=== PATIENT | female | born 1990 | race Caucasian/White ===

== ENCOUNTER 2017-01-29 08:37 | Outpatient (CLI) | payer BC ==
[2014-11-21 00:41] VITALS: BP 121/78
== END 2017-01-29 08:40 ==
LOC: OUT 08:37
PROVIDERS: ATTEND General Practice
DX: E28.2 Polycystic ovarian syndrome (principal); L03.90 Cellulitis, unspecified; L68.0 Hirsutism
CPT/HCPCS: 99213

== ENCOUNTER 2017-04-23 08:28 | Outpatient (CLI) | payer BC ==
[2014-11-21 00:41] VITALS: BP 121/78
== END 2017-04-23 08:30 ==
LOC: OUT 08:28
PROVIDERS: ATTEND General Practice
DX: E28.2 Polycystic ovarian syndrome (principal); N94.4 Primary dysmenorrhea
CPT/HCPCS: 99203

== ENCOUNTER 2017-06-16 19:10 | Emergency (ER) | payer SELFPAY ==
--- NOTE | 2017-06-16 19:11 | ED Physician Documentation ---
General Adult - HISTORIAN Historian: patient - HPI Stated Complaint: UTI Chief Complaint: Male Genitourinary Problems Onset: days ago (7) Timing: still present Severity: moderate Further Comments: yes (she states she has had nausea, frequency of urine and "faint + two days ago" She is not taking control pills. She has no fever. Denies any blood in urine. Denies back pain) Last known Well Code/Unknown Code: Unknown - ROS CONST: denies: fever, sweating EYES/ENT: none CVS/RESP: denies: shortness of breath, cough GI/: vomiting, nausea. denies: abdominal pain MS/SKIN/LYMPH: denies: rash NEURO/PSYCH: denies: headache, dizziness - PAST HX Past History: none Other History: none Surgeries/Procedures: none Immunizations: referred to PCP Allergies/Adverse Reactions: Allergies Allergy/AdvReac Type Severity Reaction Status Date / Time No Known Allergies Allergy Verified 06/16/17 19:20 Home Medications: Ambulatory Orders Medication Instructions Recorded Cephalexin [Keflex] 500 mg PO BID #20 capsule 06/16/17 Ondansetron HCl Rapdis [Zofran Odt] 4 mg PO Q8 #20 tab 06/16/17 - SOCIAL HX Smoking History: cigarettes Alcohol Use: none Drug Use: none - FAMILY HX Family History: No - VITAL SIGNS Vital Signs: Vital Signs Temp Pulse Resp BP Pulse Ox 121/78 11/21/14 01:27 - REVIEWED ASSESSMENTS Nursing Assessment Reviewed: Yes Vitals Reviewed: Yes General Adult Physical Exam - PHYSICAL EXAM GENERAL APPEARANCE: no distress EENT: eye inspection normal NECK: normal inspection RESPIRATORY: no resp distress, chest non-tender, breath sounds normal CVS: reg rate & rhythm, heart sounds normal, equal pulses ABDOMEN: soft, no organomegaly, normal bowel sounds, other (NO CVA tenderness no bladder tenderness ) BACK: normal inspection SKIN: warm/dry, normal color EXTREMITIES: non-tender NEURO: oriented X3, CN's nml as tested, motor nml Discharge Clincal Impression: UTI (urinary tract infection) Qualifiers: Urinary tract infection type: site unspecified Hematuria presence: without hematuria Qualified Code(s): N39.0 - Urinary tract infection, site not specified Prescriptions: Cephalexin [Keflex] 500 mg PO BID #20 capsule Ondansetron HCl Rapdis [Zofran Odt] 4 mg PO Q8 #20 tab Referrals: Primary Doctor,No [Primary Care Provider] - 2 Days Condition: Stable Disposition: 01 HOME, SELF-CARE Decision to Admit: NO Date of Decison to Admit: 06/16/17 Decision Time: 19:40
[2017-06-16] MEDS ORDERED: CEPHALEXIN 250 MG CAPSULE PO ONE (19:36)
[2017-06-16] MEDS ORDERED: ONDANSETRON HCL/PF 4 MG/ 2ML VIAL IM ONE (19:36)
[2017-06-16] MEDS ORDERED: ONDANSETRON HCL 4 MG TAB.RAPDIS ONE (19:43)
[2017-06-16] MEDS ORDERED: ONDANSETRON HCL 4 MG TAB.RAPDIS PO ONE (19:43)
[2017-06-16 20:09] VITALS: BP 126/82
[2017-06-17 07:22] LABS: APPEARANCE,URINE CLOUDY (CLEAR); COLOR,URINE YELLOW (YELLOW); OCCULT BLOOD,URINE NEGATIVE (NEGATIVE); PH URINE 5.5 (5.0 - 8.0); URINE HCG NEGATIVE (NEGATIVE); UROBILINOGEN URINE 0.2 Eu (0.2-1.0)
== END 2017-06-16 19:45 | disposition home or self-care (01) ==
LOC: ED 19:10
DX: N39.0 Urinary tract infection, site not specified (principal)
CPT/HCPCS: 81002; 81025; 87086; A9270; 99283

== ENCOUNTER 2017-09-02 10:47 | Outpatient (CLI) | payer SELFPAY | END 2017-09-02 10:50 | LOC: LABRHC 10:47 | PROVIDERS: ATTEND Physician Assistant | DX: R30.0 Dysuria (principal) | CPT/HCPCS: 87086 ==

== ENCOUNTER 2017-09-14 23:27 | Emergency (ER) | payer SELFPAY ==
--- NOTE | 2017-09-14 23:56 | ED Physician Documentation ---
General Adult - HISTORIAN Historian: patient - HPI Stated Complaint: soa, chest pain with inspiration, reproduceable Chief Complaint: General Adult Additional Information: one week history of dizziness and has progressed to shortness of breath, has a mild productive cough of clear phlegm. Has had some mild chest pain, sometimes on left or right. No precipitating factor, nothing seems to help or make it worse. No fever or chills noted. Patient complains of some nausea, vomiting and diarrhea. No blood noted. Timing: still present Severity: mild Modifying Factors: none Further Comments: no - ROS CONST: fever (not sure how high), chills EYES/ENT: none CVS/RESP: shortness of breath, cough GI/: vomiting, nausea, diarrhea MS/SKIN/LYMPH: other (myalgia) NEURO/PSYCH: headache - PAST HX Past History: other (cervical dyplasia) Other History: none Surgeries/Procedures: none Immunizations: referred to PCP Allergies/Adverse Reactions: Allergies Allergy/AdvReac Type Severity Reaction Status Date / Time No Known Allergies Allergy Verified 06/16/17 19:20 Home Medications: Ambulatory Orders Medication Instructions Recorded NK [NK] 09/14/17 - SOCIAL HX Smoking History: less than 1 pack/day Alcohol Use: occasionally Drug Use: none - FAMILY HX Family History: No - VITAL SIGNS Vital Signs: Vital Signs Temp Pulse Resp BP Pulse Ox 126/82 06/16/17 19:45 - REVIEWED ASSESSMENTS Nursing Assessment Reviewed: Yes Vitals Reviewed: Yes ED Results Lab/Radiology - Radiology Radiology Impressions: Pa and lateral chest Clinical history :short of breath Technique pa and lateral upright Findings: The lung merchant are clear. The lung merchant are hyperinflated I see no hilar or mediastinal mass. There is no pleural effusion or lesion of the bony thorax. Impression: Hyperinflation No acute pulmonary disease General Adult Physical Exam - PHYSICAL EXAM GENERAL APPEARANCE: mild distress EENT: ENT inspection normal, pharynx normal NECK: normal inspection, thyroid normal, supple RESPIRATORY: no resp distress, chest non-tender, breath sounds normal. No: wheezes, rales, rhonchi CVS: reg rate & rhythm, heart sounds normal, equal pulses, no murmur, no gallop ABDOMEN: soft, no organomegaly, normal bowel sounds, no abdominal bruit, no distension SKIN: warm/dry, normal color EXTREMITIES: non-tender, normal range of motion NEURO: oriented X3, mood/affect nml Discharge Clincal Impression: Dizziness, Viral illness Referrals: Primary Doctor,No [Primary Care Provider] - 2 Days Additional Instructions: Drink clear liquids for the next 12-24 hours. Try to stay well hydrated. Take Meclizine 25mg ever 6 hours as needed for dizziness. If you continue to have problems to follow-up with your primary care provider. Condition: Stable Disposition: 01 HOME, SELF-CARE Decision to Admit: NO Date of Decison to Admit: 09/15/17 Decision Time: 01:11
[2017-09-15 00:57] LABS: eGFR (African) > 60; eGFR (Non-African) > 60
[2017-09-15] MEDS: MECLIZINE HCL 25 MG TABLET PO ONE (01:13)
[2017-09-15 01:43] VITALS: BP 123/82
--- NOTE | 2017-09-15 07:52 | Diagnostic Imaging Report ---
SHEILA MATTHEWS [facility] [address] [facility] [address] [address] Report Submission Date: Sep 15, 2017 12:36:35 AM CRIMINAL ATTORNEY Patient Study Name: MAGDALENO CHASE Date: Sep 15, 2017 12:17:14 AM CRIMINAL ATTORNEY Modality Type: DX Gender: F Description: CHEST : 89 Institution: [facility] Physician: SHEILA MATTHEWS Pa and lateral chest Clinical history :short of breath Technique pa and lateral upright Findings: The lung merchant are clear. The lung merchant are hyperinflated I see no hilar or mediastinal mass. There is no pleural effusion or lesion of the bony thorax. Impression: Hyperinflation No acute pulmonary disease Electronically signed on Sep 15, 2017 12:36:35 AM CRIMINAL ATTORNEY by: Demetrius ROMO
[2017-09-15 18:41] LABS: BASO % 0.6 % (0.0-1.5); EOS % 3.7 % (0.0-6.8); LYMPH ABS # 4.12 thou/uL (0.60-4.00); MCH. 25.9 pg (28.0-34.0); MCV 80.6 fL (80.0-100.0); MONOCYTE ABS # 0.47 thou/uL (0.00-0.90); PLATELET COUNT 598 thou/uL (130-400)
== END 2017-09-15 01:18 | disposition home or self-care (01) ==
LOC: ED 23:27
DX: B34.9 Viral infection, unspecified (principal); R42 Dizziness and giddiness
CPT/HCPCS: 71046; 80053; 85025; 99283; S1016

== ENCOUNTER 2017-11-12 17:41 | Emergency (ER) | payer SELFPAY ==
--- NOTE | 2017-11-12 18:25 | ED Physician Documentation ---
General Adult - VITAL SIGNS Vital Signs: Vital Signs Temp Pulse Resp BP Pulse Ox 96.8 F L 63 17 127/72 99 11/12/17 17:50 11/12/17 17:50 11/12/17 17:50 11/12/17 17:50 11/12/17 17:50 <VivianeKaden cruz Nina - Last Filed: 11/12/17 20:59> - HISTORIAN Historian: patient - HPI Stated Complaint: R flank pain Chief Complaint: Abdominal Pain Additional Information: 3 day pain in the RLQ/pelvic area. The pain is radiating into the right flank area. Patient describes the pain as being intermittent when it first started but seemed to be constant at this time. No precipitating factor. Nothing seems to modify the pain. No vaginal discharge. Patient denies any fever or chills. Patient denies any previous history of kidney stones. Patient has not had any similar pain previously.Patient denies any history of an ovarian cyst. Onset: days ago (3 days) Timing: still present Severity: moderate - ROS CONST: no problems. denies: fever, chills - PAST HX Past History: other (anxiety) Other History: none Surgeries/Procedures: none Immunizations: referred to PCP - SOCIAL HX Smoking History: less than 1 pack/day (1/2 ppd) Alcohol Use: occasionally Drug Use: none - FAMILY HX Family History: Yes - VITAL SIGNS Vital Signs: Vital Signs Temp Pulse Resp BP Pulse Ox 96.8 F L 63 17 127/72 99 11/12/17 17:50 11/12/17 17:50 11/12/17 17:50 11/12/17 17:50 11/12/17 17:50 - REVIEWED ASSESSMENTS Nursing Assessment Reviewed: Yes Vitals Reviewed: Yes <Gordon Simms - Last Filed: 11/19/17 15:04> - PAST HX Allergies/Adverse Reactions: Allergies Allergy/AdvReac Type Severity Reaction Status Date / Time No Known Allergies Allergy Verified 11/12/17 18:08 Home Medications: Ambulatory Orders Medication Instructions Recorded Buspirone HCl [Buspar] 10 mg PO BID 11/12/17 Progress - Progress Progress: CT abdomen/pelvis w/o contrast: The lung bases are clear partial right lower lobe granuloma. Evaluation is limited without IV contrast. Abdomen: The liver, pancreas and spleen are normal in appearance. The gallbladder is unremarkable. The kidneys are normal in size and surface contour. There is no evidence of renal or ureteral calculi identified. No hydronephrosis or perinephric stranding is evident. The aorta is normal in caliber. The small bowel is nondistended. There is no evidence of free air or free fluid. Pelvis: The colon is normal in appearance. The distal ureters and bladder are normal in appearance. There is no evidence of distal ureteral or intravesicular calculi. . There is no evidence of free air or free fluid. The sigmoid colon and rectum are normal. The appendix is at upper limits of normal in size measuring 6 mm. There is no periappendiceal fat stranding. Cannot evaluate for abnormal enhancement as IV contrast was not given. IMPRESSION: No evidence of renal or ureteral calculi. Upper limits of normal appendix size without other noncontrast evidence of acute appendicitis. Clinical correlation recommended as early appendicitis not excluded given the clinical history. Electronically signed on November 12, 2017 7:55:13 PM CDT by: Ronak Dover Toradol 30 mg IV temporary relief NS 1 L IVF Zofran 4 mg IV Dilaudid 1 mg IV pain improved Cannot rule out appendicitis, though pt does not have elevated wbc, n/v, or complete loss of appetite, though pt does not feel like eating. Pt wishes to go home. She will return to ER if pain increases or if she develops n/v, fever , or has new concerns. Return to ER if pain recurs or if you develop new symptoms such as nausea/ vomiting, fever or if you have concerns. <Kaden Alejandra - Last Filed: 11/12/17 20:59> ED Results Lab/Radiology - Lab Results Lab Results: Lab Results 11/12/17 11/12/17 18:00 18:00 WBC 9.60 K/ul K/ul (4.00-12.00) RBC 4.93 M/ul M/ul (3.90-5.20) Hgb 12.7 g/dL g/dL (12.0-16.0) Hct 40.2 % % (34.5-46.5) MCV 81.4 fl fl (80.0-100.0) MCH 25.7 pg L pg (28.0-34.0) MCHC 31.6 g/dL g/dL (30.0-36.0) RDW 13.6 % % (11.3-14.3) Plt Count 570 K/mm3 H K/mm3 (130-400) Neut % (Auto) 59.7 % % (39.0-79.0) Lymph % (Auto) 31.8 % % (16.0-50.0) [place] % (Auto) 3.4 % % (0.0-11.0) Eos % (Auto) 3.7 % % (0.0-6.8) Baso % (Auto) 0.4 (0.0-1.5) Neut # (Auto) 5.7 # k/uL # k/uL (1.4-7.7) Lymph # (Auto) 3.0 # k/uL # k/uL (0.6-4.0) [place] # (Auto) 0.3 # k/uL # k/uL (0.0-0.9) Eos # (Auto) 0.4 # k/uL # k/uL (0.0-0.6) Baso # (Auto) 0.0 # k/uL # k/uL (0.0-0.5) Reactive Lymphs % 1.1 % % (0.0-5.0) Reactive Lymphs # 0.1 # k/uL # k/uL (0.0-0.8) Sodium 140 mmol/L mmol/L (136-145) Potassium 4.3 mmol/L mmol/L (3.5-5.1) Chloride 103 mmol/L mmol/L (98-107) Carbon Dioxide 21 mmol/L L mmol/L (22-30) BUN 13 mg/dL mg/dL (7-17) Creatinine 0.70 mg/dL mg/dL (0.52-1.04) Estimated Creat Clear 267 Est GFR ( Amer) > 60 (60 - ) Est GFR (Non-Af Amer) > 60 (60 - ) Glucose 84 mg/dL mg/dL (74-106) Calcium 10.2 mg/dL mg/dL (8.4-10.2) Total Bilirubin 0.9 mg/dL mg/dL (0.2-1.3) AST 25 U/L U/L (15-46) ALT 33 U/L U/L (13-69) Alkaline Phosphatase 36 U/L L U/L (38-126) Total Protein 8.9 g/dL H g/dL (6.3-8.2) Albumin 4.8 g/dL g/dL (3.5-5.0) - Orders Orders: ED Orders Category Date Time Status Place IV Lock 1T Care 11/12/17 18:[address] ABD & PELVIS W/O CON Stat Exams 11/12/17 Taken CBC/PLATELET/DIFF Routine Lab 11/12/17 18:00 Completed CMP Routine Lab 11/12/17 18:00 Completed URINALYSIS Routine Lab 11/12/17 Ordered URINE HCG Routine Lab 11/12/17 Uncollected 0.9 % Sodium Chloride [Normal Saline] 1,000 ml Med 11/12/17 19:45 Active IV Q1H HYDROmorphone HCL/PF [Dilaudid] Med 11/12/17 20:02 Discontinued 1 mg IVP NOW ONE HYDROmorphone HCL/PF [Dilaudid] Med 11/12/17 20:04 Discontinued 2 mg .ROUTE .STK-MED ONE Ketorolac Tromethamine [Toradol] Med 11/12/17 18:31 Discontinued 30 mg IVP NOW ONE Ondansetron HCl/Pf [Zofran 4 mg/2 ml] Med 11/12/17 20:02 Discontinued 4 mg IVP NOW ONE <Kaden Alejandra - Last Filed: 11/12/17 20:59> General Adult Physical Exam - PHYSICAL EXAM GENERAL APPEARANCE: moderate distress EENT: no signs of dehydration NECK: normal inspection, thyroid normal, supple. No: lymphadenopathy RESPIRATORY: no resp distress, chest non-tender, breath sounds normal. No: wheezes, rales, rhonchi CVS: reg rate & rhythm, heart sounds normal, equal pulses, no murmur, no gallop ABDOMEN: soft, no organomegaly, normal bowel sounds, no abdominal bruit, no distension, tenderness (RLQ area, mild right CVA tenderness,). No: rigid, rebound, guarding NEURO: oriented X3, mood/affect nml, cognition normal <Gordon Simms Last Filed: 11/19/17 15:04> Discharge Decision to Admit: NO Decision Time: 20:43 <Kaden Alejandra - Last Filed: 05/08/18 20:59> <Simms,Gordon - Last Filed: 11/19/17 15:04> Clincal Impression: abd pain Referrals: Primary Doctor,No [Primary Care Provider] - Condition: Stable Disposition: 01 HOME, SELF-CARE
[2017-11-12] MEDS ORDERED: KETOROLAC TROMETHAMINE 30 MG/1ML VIAL IVP ONE (18:31)
[2017-11-12 18:45] LABS: BASOPHILS % 0.4 (0.0-1.5); EOSINOPHILS % 3.7 % (0.0-6.8); MEAN CORPUSCULAR HEMOGLOBIN 25.7 pg (28.0-34.0); MEAN CORPUSCULAR VOLUME 81.4 fl (80.0-100.0); MONOCYTES % 3.4 % (0.0-11.0); NEUTROPHILS # 5.7 # k/uL (1.4-7.7)
[2017-11-12 19:08] LABS: eGFR (African) > 60; eGFR (Non-African) > 60
[2017-11-12] MEDS ORDERED: 0.9 % SODIUM CHLORIDE 1,000 ML IV ONE (19:45)
[2017-11-12] MEDS ORDERED: ONDANSETRON HCL/PF 4 MG/ 2ML VIAL IVP ONE (20:02)
[2017-11-12] MEDS ORDERED: HYDROmorphone HCL/PF 1 MG/ML DISP.SYRIN IVP ONE (20:02)
[2017-11-12] MEDS ORDERED: HYDROmorphone HCL/PF 2 MG/ML DISP.SYRIN ONE (20:04)
[2017-11-12] MEDS ORDERED: HYDROcodone /APAP 5/325 1 EACH TABLET PO ONE (20:46)
[2017-11-12] MEDS ORDERED: ONDANSETRON HCL 4 MG TAB.RAPDIS PO ONE (20:46)
[2017-11-12 21:21] VITALS: BP 130/89
--- NOTE | 2017-11-13 07:12 | Diagnostic Imaging Report ---
SHEILA MATTHEWS [facility] [address] [facility] [address] [place], [place]. [address] Report Submission Date: November 12, 2017 7:55:13 PM CDT Patient Study Name: MAGDALENO CHASE Date: November 12, 2017 6:54:51 PM CDT Modality Type: CT\SR Gender: F Description: CT ABD PELVIS W/O CO : 89 Institution: [facility] Physician: SHEILA MATTHEWS CT abdomen and pelvis without contrast CLINICAL HISTORY: RLQ/HIP PAIN RADITATING TO RT FLANK (Hx) / ITS.REASON kidney stone protochol TECHNIQUE: 5 mm contiguous axial images of the abdomen and pelvis non contrast. FINDINGS: The lung bases are clear partial right lower lobe granuloma Evaluation is limited without IV contrast. Abdomen: The liver, pancreas and spleen are normal in appearance. The gallbladder is unremarkable. The kidneys are normal in size and surface contour. There is no evidence of renal or ureteral calculi identified. No hydronephrosis or perinephric stranding is evident. The aorta is normal in caliber. The small bowel is nondistended. There is no evidence of free air or free fluid. Pelvis: The colon is normal in appearance. The distal ureters and bladder are normal in appearance. There is no evidence of distal ureteral or intravesicular calculi. . There is no evidence of free air or free fluid. The sigmoid colon and rectum are normal. The appendix is at upper limits of normal in size measuring 6 mm. There is no periappendiceal fat stranding. Cannot evaluate for abnormal enhancement as IV contrast was not given. IMPRESSION: No evidence of renal or ureteral calculi. Upper limits of normal appendix size without other noncontrast evidence of acute appendicitis. Clinical correlation recommended as early appendicitis not excluded given the clinical history. Electronically signed on November 12, 2017 7:55:13 PM CDT by: Ronak ROMO
[2017-11-13 07:37] LABS: APPEARANCE,URINE CLOUDY (CLEAR); COLOR,URINE AMBER (YELLOW)
[2017-11-13 07:38] LABS: OCCULT BLOOD,URINE NEGATIVE (NEGATIVE); URINE HCG NEGATIVE (NEGATIVE); UROBILINOGEN URINE 0.2 Eu (0.2-1.0)
== END 2017-11-12 20:55 | disposition home or self-care (01) ==
LOC: ED 17:41
DX: R10.9 Unspecified abdominal pain (principal)
CPT/HCPCS: 74176; 80053; 81002; 81025; 85025; A9270; J1170; J1885; J2405; J7030; 96365; 96375; 99283; S1016

== ENCOUNTER 2018-03-29 06:40 | Emergency (ER) | payer SELFPAY ==
[2018-03-29] MEDS ORDERED: KETOROLAC TROMETHAMINE 60 MG/2 ML VIAL IM ONE (07:28)
[2018-03-29] MEDS ORDERED: HYDROcodone /APAP 5/325 1 EACH TABLET PO ONE (07:29)
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
[2018-03-29] MEDS ORDERED: ORPHENADRINE CITRATE 60 MG/2ML IM ONE (08:32)
--- NOTE | 2018-03-29 08:51 | Diagnostic Imaging Report ---
NICOLE DURAN [facility] [address] [facility] [address] [place], [place]. [address] Report Submission Date: Mar 29, 2018 8:28:12 AM CDT Patient Study Name: MAGDALENO CHASE Date: Mar 29, 2018 7:49:47 AM CDT Modality Type: DX Gender: F Description: SPINE : 89 Institution: [facility] Physician: NICOLE DURAN Lumbar spine 3 views Clinical history: Low back pain There is muscle spasm with minute marginal spurs anal slight levoscoliosis of the lumbar spine. No fracture, dislocation or bone destruction. Bilateral spondylolysis of L4 without appreciable spondylolisthesis. Impression: Muscle spasm with mild marginal spurs without fractures Mild levoscoliosis with bilateral spondylolysis of L4 Electronically signed on Mar 29, 2018 8:28:12 AM CDT by: Gordon ROMO
--- NOTE | 2018-03-29 08:51 | Diagnostic Imaging Report ---
NICOLE DURAN [facility] [address] [facility] [address] [place] [address]. [id number] Report Submission Date: Mar 29, 2018 8:28:55 AM CDT Patient Study Name: MAGDALENO CHASE Date: Mar 29, 2018 7:46:10 AM CDT Modality Type: DX Gender: F Description: PELVIS : 89 Institution: [facility] Physician: NICOLE DURAN AP view of the pelvis. Clinical history: Right hip pain. No visible fracture, dislocation or bone destruction. Pelvis and both hips are normal. Impression: Normal single AP view the pelvis Electronically signed on Mar 29, 2018 8:28:55 AM CDT by: Gordon ROMO
[2018-03-29 09:03] VITALS: BP 122/74
== END 2018-03-29 09:02 | disposition home or self-care (01) ==
LOC: ED 06:40
DX: M62.830 Muscle spasm of back (principal); M54.41 Lumbago with sciatica, right side
CPT/HCPCS: 72100; 72170; 81025; A9270; J1885; J2360; 96372; 99284

== ENCOUNTER 2018-06-05 15:19 | Emergency (ER) | payer SELFPAY ==
[2018-06-05 15:32] VITALS: BP 141/76
[2018-06-05] MEDS ORDERED: ORPHENADRINE CITRATE 60 MG/2 ML ML IM ONE (15:45)
[2018-06-05] MEDS ORDERED: methylPREDNISolone SOD SUCC 125 MG/2 ML VIAL IM ONE (15:45)
[2018-06-05 15:46] LABS: APPEARANCE,URINE CLOUDY (CLEAR); COLOR,URINE YELLOW (YELLOW); OCCULT BLOOD,URINE NEGATIVE (NEGATIVE); PH URINE 5.5 (5.0 - 8.0); UROBILINOGEN URINE 0.2 Eu (0.2-1.0)
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
== END 2018-06-05 16:13 | disposition home or self-care (01) ==
LOC: ED 15:19
DX: M54.41 Lumbago with sciatica, right side (principal); G89.29 Other chronic pain
CPT/HCPCS: 81002; 81025; 87086; 96372; 99282; J2360; J2930

== ENCOUNTER 2018-08-01 07:16 | Emergency (ER) | payer OTHER ==
--- NOTE | 2018-08-01 07:43 | ED Physician Documentation ---
General Adult - HISTORIAN Historian: patient - HPI Stated Complaint: R hip pain Chief Complaint: General Adult Onset: other (months) Timing: still present Severity: moderate Further Comments: yes (Pt is a 27 yo female with R hip pain that has been occurring intermittently since September 2017. Pt had been taking steroids and muscle relaxants prn, but has run out of these meds. Pt has appointment with orthopedist in 5 days.) - ROS CONST: no problems EYES/ENT: none CVS/RESP: none GI/: none MS/SKIN/LYMPH: back pain, other (R hip pain) - PAST HX Past History: none Other History: none Allergies/Adverse Reactions: Allergies Allergy/AdvReac Type Severity Reaction Status Date / Time No Known Drug Allergies Allergy Verified 06/05/18 15:32 Home Medications: Ambulatory Orders Medication Instructions Recorded Orphenadrine Citrate [Norflex] 100 mg PO BID #60 tab 06/05/18 predniSONE [Deltasone] 20 mg PO DIRECTED #20 tablet 06/05/18 - SOCIAL HX Smoking History: cigarettes - FAMILY HX Family History: No - VITAL SIGNS Vital Signs: Vital Signs Temp Pulse Resp BP Pulse Ox 141/76 06/05/18 16:13 - REVIEWED ASSESSMENTS Nursing Assessment Reviewed: Yes Vitals Reviewed: Yes Progress - Progress Progress: Toradol 60 mg IM Diazepam 5 mg po Rx Norflex 100 mg. Take one every 12 hours as needed for musculoskeletal pain/spasm. Rx Prednisone 50 mg. Take one tablet by mouth once daily for 5 days. Follow up with orthopedic doctor next week as planned. General Adult Physical Exam - PHYSICAL EXAM GENERAL APPEARANCE: moderate distress NECK: normal inspection, supple RESPIRATORY: no resp distress, chest non-tender, breath sounds normal CVS: reg rate & rhythm, heart sounds normal ABDOMEN: soft, no organomegaly, normal bowel sounds BACK: normal inspection, other (R paraspinal muscle spasm) EXTREMITIES: non-tender, normal range of motion, no evidence of injury NEURO: oriented X3, motor nml, sensation nml Discharge Clincal Impression: Muscle spasm of back Referrals: Primary Doctor,No [Primary Care Provider] - Condition: Stable Disposition: 01 HOME, SELF-CARE Decision to Admit: NO Decision Time: 08:14
[2018-08-01] MEDS ORDERED: DIAZEPAM 5 MG TABLET PO ONE (07:53)
[2018-08-01] MEDS ORDERED: KETOROLAC TROMETHAMINE 60 MG/2 ML VIAL IM ONE (07:53)
[2018-08-01 08:26] VITALS: BP 126/75
== END 2018-08-01 08:23 | disposition home or self-care (01) ==
LOC: ED 07:16
DX: M62.830 Muscle spasm of back (principal)
CPT/HCPCS: 96372; 99282; 99283; J1885

== ENCOUNTER 2018-10-02 14:43 | Emergency (ER) | payer OTHER ==
[2018-10-02] MEDS: KETOROLAC TROMETHAMINE 60 MG/2 ML VIAL IM ONE (15:25)
[2018-10-02] MEDS: DIAZEPAM 5 MG/ML IM ONE (15:25)
--- NOTE | 2018-10-02 16:11 | ED Physician Documentation ---
General Adult - HISTORIAN Historian: patient - HPI Stated Complaint: mid/lower back pain Chief Complaint: General Adult Further Comments: yes (Pt is a 27 yo female with chronic back pain, and a know L-4 fracture for which she is being followed by ortho. Pt has been on topirimate, but has not been on it long enough for it to be effective yet. Pt has a LBP exacerbation. No new trauma.) - ROS CONST: no problems EYES/ENT: none CVS/RESP: none GI/: other (back pain) MS/SKIN/LYMPH: back pain - PAST HX Past History: other (L-4 fracture, ) Other History: none Allergies/Adverse Reactions: Allergies Allergy/AdvReac Type Severity Reaction Status Date / Time No Known Drug Allergies Allergy Verified 10/02/18 15:14 Home Medications: Ambulatory Orders Medication Instructions Recorded Ibuprofen 800 mg PO BID 10/02/18 Topiramate 25 mg PO BID 10/02/18 - SOCIAL HX Smoking History: quit greater than 1 year - FAMILY HX Family History: No - VITAL SIGNS Vital Signs: Vital Signs Temp Pulse Resp BP Pulse Ox 96.9 F L 86 18 123/59 99 10/02/18 14:55 10/02/18 14:55 10/02/18 14:55 10/02/18 14:55 10/02/18 14:55 - REVIEWED ASSESSMENTS Nursing Assessment Reviewed: Yes Vitals Reviewed: Yes Progress - Progress Progress: Toradol 60 mg IM Diazepam 10 mg IM much improved ED Results Lab/Radiology - Orders Orders: ED Orders Category Date Time Status Diazepam [Valium] Med 10/02/18 15:13 Discontinued 10 mg IM NOW ONE Ketorolac Tromethamine [Toradol] Med 10/02/18 15:13 Discontinued 60 mg IM NOW ONE General Adult Physical Exam - PHYSICAL EXAM GENERAL APPEARANCE: moderate distress EENT: ENT inspection normal NECK: normal inspection, supple RESPIRATORY: no resp distress, chest non-tender, breath sounds normal CVS: reg rate & rhythm, heart sounds normal ABDOMEN: soft, no organomegaly, normal bowel sounds BACK: normal inspection, no CVA tenderness, other (tenderness lower lumbar spine) SKIN: warm/dry, normal color EXTREMITIES: non-tender, normal range of motion, no evidence of injury NEURO: oriented X3, motor nml, sensation nml, other (DTR's wnl) Discharge Clincal Impression: acute/chronic back pain Back pain Qualifiers: Back pain location: low back pain Chronicity: chronic Back pain laterality: midline Sciatica presence: unspecified whether sciatica present Qualified Co de(s): M54.5 - Low back pain Referrals: Primary Doctor,No [Primary Care Provider] - 2 Days Condition: Stable Disposition: 01 HOME, SELF-CARE Decision to Admit: NO Decision Time: 16:46
[2018-10-02 17:17] VITALS: BP 109/69
== END 2018-10-02 16:55 | disposition home or self-care (01) ==
LOC: ED 14:43
DX: M54.5 Low back pain (principal); G89.29 Other chronic pain
CPT/HCPCS: 96372; 99282; 99283; J1885

== ENCOUNTER 2019-03-02 07:05 | Emergency (ER) | payer OTHER ==
[2019-03-02] MEDS ORDERED: KETOROLAC TROMETHAMINE 60 MG/2 ML VIAL IM ONE (07:12)
[2019-03-02] MEDS ORDERED: methylPREDNISolone ACETATE 80 MG/ML VIAL IM ONE (07:22)
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
[2019-03-02 08:03] VITALS: BP 120/76
== END 2019-03-02 08:00 | disposition home or self-care (01) ==
LOC: ED 07:05
DX: M54.41 Lumbago with sciatica, right side (principal)
CPT/HCPCS: 93005; 96372; 99284; J1040; J1885